=== PATIENT | male | born 1940 | race Caucasian/White ===

== ENCOUNTER 2021-09-21 10:13 | Emergency (ER) | payer OTHER ==
[~2021-09-21] VITALS: Ht 172.7 cm; Wt 62.6 kg
[2021-09-21 10:40] LABS: ABSOLUTE NEUTROPHILS 5.6 thou/uL (1.4-8.2); BASOPHILS 0.6 % (0.0-2.0); EOSINOPHILS 1.2 % (0.0-3.0); HEMATOCRIT 43.7 % (42.0-52.0); HEMOGLOBIN 14.4 gm/dL (14.0-18.0); LYMPHOCYTES 12.5 % (24.0-44.0); MCH 33.1 pg (26.0-34.0); MCV 100.2 fL (80.0-100.0); PLATELET COUNT 236 thou/uL (150-400); POLYS 77.7 % (36.0-66.0); RBC 4.36 mil/uL (4.50-6.00); RDW 13.9 % (10.5-14.5); WBC 7.2 thou/uL (4.0-11.0)
[2021-09-21 10:42] LABS: URINE BILIRUBIN NEGATIVE (Negative); URINE BLOOD NEGATIVE (Negative); URINE CLARITY CLEAR; URINE COLOR YELLOW; URINE GLUCOSE-RANDOM* NEGATIVE (Negative); URINE KETONES NEGATIVE (Negative); URINE LEUKOCYTES-REFLEX NEGATIVE (Negative); URINE NITRITE-REFLEX NEGATIVE (Negative); URINE PROTEIN (DIPSTICK) 1+ (Negative); URINE SPECIFIC GRAVITY 1.025 (1.005-1.035); URINE UROBILINOGEN 0.2 E.U./dl (0.2-1.0)
[2021-09-21 10:52] LABS: CALCIUM 9.3 mg/dL (8.5-10.1); CREATININE 0.9 mg/dL (0.7-1.3); POTASSIUM 4.4 mmol/L (3.5-5.1)
[2021-09-21 10:58] LABS: ALBUMIN 3.8 g/dL (3.4-5.0); TOTAL BILIRUBIN 0.7 mg/dL (0.2-1.0); TOTAL PROTEIN 7.6 g/dL (6.4-8.2)
[2021-09-21] MEDS ORDERED: ARICEPT10 MG PO (11:01)
[2021-09-21] MEDS ORDERED: NORVASC5 MG PO (11:01)
[2021-09-21] MEDS ORDERED: LEXAPRO 10 MG T10 M2 PO (11:01)
[2021-09-21] MEDS ORDERED: MELOXICAM15 MG PO (11:02)
[2021-09-21] MEDS ORDERED: TAMSULOSIN HCL0.4 MG PO (11:02)
[2021-09-21 11:03] LABS: HYALINE CASTS 0-3 Few /LPF (None Seen); SQUAMOUS None Seen /LPF (0-3)
[2021-09-21 11:04] LABS: BACTERIA-REFLEX 1-9 Few /HPF (None Seen); CRYSTALS None Seen /LPF (None Seen); URINE RBC None Seen /HPF (NONE SEEN); URINE WBC-REFLEX 0-5 Rare /HPF (0-5)
--- NOTE | 2021-09-21 12:37 | EKG ---
[place] [address] [facility] [place] [address] ELECTROCARDIOGRAM REPORT Name: JAI SANABRIA Room #: [facility]#: [id number] Admission: 09/21/21 Attend Phys: Discharge: Date of : 36 Report #: [id number] [facility] ED Test Date: 2021-09-21 Test Time: 10:58:26 Pat Name: JAI SANABRIA Department: Room: Gender: M [employer]: MPARK : 1940 Requested By: Katie Shahid Order Number: [id number] MD: Chay Aiken Measurements Intervals [place] Rate: 67 P: 9 NC: 167 QRS: -59 QRSD: 147 T: 22 QT: 443 QTc: 468 Interpretive Statements Sinus rhythm RBBB Baseline wander in lead(s) V4 Compared to ECG 05/07/2000 11:27:19 Left anterior fascicular block now present Right bundle-branch block now present Sinus tachycardia no longer present Left-axis deviation no longer present Electronically Signed On 09-21-2021 12:37:20 MUSIC EXECUTIVE by Chay Aiken [email or web address] <ELECTRONICALLY SIGNED> By: Chay Aiken MD, FAC 09/21/21 1237 [id number] [id number] Chay Aiken MD, [facility] /EPI
[2021-09-21 14:01] VITALS: BP 134/74
--- NOTE | 2021-09-23 13:28 | HC ---
[facility] [place] [address] CONSULTATION Name: JAI SANABRIA Room #: DEP Supa#: [id number] Admission: 09/21/21 Attend Phys: Discharge: 09/21/21 Date of : 36 Report #: [id number] THIS REPORT FOR: cc: Mukund Escalona Herbert E. DO Kerstein, Andrew H. DO ~ DATE OF SERVICE: 09/21/2021 PSYCHIATRY CL CONSULTATION Done in the Emergency Room at [facility]. DATE OF PRESENTATION TO THE ER: 09/21/2021 DATE OF CONSULTATION: 09/21/2021 REASON FOR CONSULTATION: Concern for cognitive impairment, safety of discharge plan. The patient's reason for presentation at the ER was fall, flank pain 5 days ago. HISTORY OF PRESENT ILLNESS: This is an 80-year-old male who presented to the ED for a fall this morning, just before 11:00 a.m. He states he had a fall 5 days ago and has been confused since the fall. The patient states he has lost his balance and he fell "hit something on his left side." He states the pain worsens with movement. He is in the ER with his son, Saul. He denied aggravating or alleviating factors. Denied loss of consciousness during the fall and states he got up afterwards. The patient states he is vaccinated for COVID. Denies being on blood thinners. Denies shortness of breath. Denies chest pain, neck pain, back pain, weakness or tingling in the legs, abdominal pain. Denies nausea, vomiting. Denies diarrhea, hematuria, dysuria, fever, or headache. When I saw the patient at bedside, he is oriented to self. He knows he is in a medical facility, did not know the name of [facility]. He initially says the date is 10/20/2021. When I questioned him again, he did say it was September. When I asked him the day of the week, he did know it was . So, he got some orienting information correct. The patient's son, Saul understands his father has cognitive impairment. He is planning to stay with him tonight. Dr. Shahid spoke with the patient's daughter who had more longitudinal concerns. There was some interest in being admitted to the patient overnight. Dr. Shahid discussed, he is not meeting criteria for medical admission. I discussed admission to Geriatric Psychiatry Unit. It is never overnight and will be at least a 5-day length of stay. Voluntary admission was offered to the patient and his son, they declined. At this time, there is no documentation demonstrating a guardianship or a healthcare power of trial attorney. Reported medications, donepezil 10 mg oral daily, Lexapro 10 mg oral daily, amlodipine 5 mg oral daily, tamsulosin 0.4 mg oral daily, meloxicam [address] [address] CONSULTATION Name: JAI SANABRIA Room #: DEP [facility]#: [id number] Admission: 09/21/21 Attend Phys: Discharge: 09/21/21 Date of : 36 Report #: [id number] daily. ALLERGIES: No known drug allergies. SOCIAL HISTORY: Denied tobacco, alcohol or recreational drug use. REVIEW OF SYSTEMS: From the ER: CONSTITUTIONAL: Denies fever, chills, malaise, unexplained weight change. EYES: Denies eye pain, visual change, or discharge. :HENT Denies hearing changes, ear drainage, ear infections, ear pain, neck pain or neck stiffness. RESPIRATORY: Denies cough, shortness of breath, hemoptysis, or respiratory distress. CARDIOVASCULAR: Denies chest pain, chest pain with exertion, or edema. GASTROINTESTINAL: Denies abdominal pain, nausea, vomiting, or diarrhea. GENITOURINARY: Denies burning, frequency, or dysuria. MUSCULOSKELETAL: Denies back pain, joint pain, muscle weakness, or myalgias except the left rib pain. SKIN: Denies rash. NEUROLOGIC: Denies weakness, headaches, or loss of consciousness. Otherwise, 10-point review of systems is negative. VITAL SIGNS: Here in the ER, pulse ox 96%, BP 140/67, temperature 36.2, pulse 72, respirations 15, weight 62.60 kilograms. PHYSICAL EXAMINATION: Most pertinent positive was reproducible posterolateral tenderness. LABORATORY DATA: It looks like there were basic labs and radiology performed. Laboratories from today's visit: White count 7.2, H and H 14.4 and 43.7, MCV is a macrocytosis of 100.2, platelet count 236. Chemistry: Sodium 143, potassium 4.4, chloride 104, bicarbonate 28, anion gap 11, BUN 14, creatinine 0.8, estimated GFR 81, calcium 9.3, total bilirubin 0.7, AST 20, ALT 21, alkaline phosphatase 75. Troponin high sensitivity was 11. Total protein 7.6, albumin 3.8. Urinalysis showed 1+ protein, 1-9 bacteria, 0-3 hyaline casts, to UA findings are not indicative of cystitis. Moving on, serology done today, he had a COVID antigen test, which was negative. Imaging done today included chest x-ray, abdominal pelvis CT, chest CT, head CT, so an incremental order. Head CT showed no acute intracranial abnormalities identified, read by Dr. Hough. Chest CT showed nondisplaced fracture, left posterior 11th rib, no other acute appearing abnormality, read by Dr. Hough as well. Abdominal pelvis CT showed no acute appearing abnormalities, [facility] [address] [place] [address] CONSULTATION Name: JAI SANABRIA Room #: DEP Supa#: [id number] Admission: 09/21/21 Attend Phys: Discharge: 09/21/21 Date of : 36 Report #: [id number] cholelithiasis consistent with a single large gallbladder calculus, colonic diverticulosis without evidence for diverticulitis, marked enlargement of the prostate. Chest x-ray showed no acute process. PHYSICAL EXAMINATION: Lying on gurney in the ER in hospital gown, hooked up to monitoring equipment. MENTAL STATUS EXAMINATION: This is a well-developed, age-appearing male. Attention limited. Concentration limited. Speech soft, normal rate. Thought process: Linear and goal directed. Thought content: Focused on the interrogatories that I gave him. Having a relative poverty of thought. Looking forward to the son for guidance at times during our conversation. He denied suicidal or homicidal ideations. Denied auditory, visual, or tactile hallucinations. Denied hopelessness or helplessness. Memory I suspect there were deficits, but I felt performing a [facility] mental status examination will be antagonizing to the patient and his son, so that is deferred for a more thorough outpatient or inpatient evaluation. Insight and judgment were limited. Fund of knowledge, no greater than average. FORMULATION: An 80-year-old male presenting for left posterior rib pain in the setting of living alone and progressive cognitive impairment. 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 Additional morbidities per the Emergency Room notes are left rib fracture. Other morbidities include benign prostatic hypertrophy. RECOMMENDATIONS: At this time, presently, the patient is not in acute distress, not suicidal or homicidal. His son is willing to provide 24-hour care at this point. I did discuss with the son, Saul and the patient. The patient in my mind meets criteria for assisted living level of care and should have a responsible adult present at all times. Given the present situation with the COVID surge and the pandemic, I agree with Dr. Shahid, there is not a reason to force admission to the hospital. The patient and son were advised that he can return to the Emergency Room at anytime and should if psychiatric concerns worsen. Recommending outpatient Psychiatry followup at the clinic or other mental health center in his catchment area. Time spent on this case is about 45 minutes. <ELECTRONICALLY SIGNED> By: Ron Brito DO 09/23/21 1328 [id number] [id number] Ron Brito DO /nt
== END 2021-09-21 14:02 | disposition home or self-care (01) ==
LOC: ER 10:13
PROVIDERS: Emergency Medicine
DX: S22.32XA Fracture of one rib, left side, initial encounter for closed fracture (principal); Z20.822 Contact with and (suspected) exposure to COVID-19; R10.10 Upper abdominal pain, unspecified; R41.0 Disorientation, unspecified; Z79.899 Other long term (current) drug therapy; W01.0XXA Fall on same level from slipping, tripping and stumbling without subsequent striking against object, initial encounter; Y93.89 Activity, other specified; Y92.89 Other specified places as the place of occurrence of the external cause; Y99.8 Other external cause status